=== PATIENT | female | born 1970 | race Caucasian/White ===

== ENCOUNTER → 2019-03-22 | Outpatient (CLI) | payer MEDICARE, OTHER ==
[~2019-03-22] MED LIST: Augmentin 875-1 EACH PO; CLON.5
== END | disposition home or self-care (01) ==
LOC: LAB EV 15:17 → LAB SHORT 15:17
DX: N10 Acute pyelonephritis (principal)
CPT/HCPCS: 87077; 87086; 87186

== ENCOUNTER → 2019-04-06 | Outpatient (CLI) | payer MEDICARE, OTHER | END | disposition home or self-care (01) | LOC: LAB SHORT 15:21 → LAB EV 15:21 | DX: N12 Tubulo-interstitial nephritis, not specified as acute or chronic (principal) | CPT/HCPCS: 87077; 87086; 87186 ==